=== PATIENT | female | born 1950 | race Caucasian/White ===

== ENCOUNTER 2017-12-22 01:18 | Inpatient (IN) | payer MEDICARE, BC ==
[~2017-12-22] VITALS: Ht 157.5 cm; Wt 91.6 kg
--- NOTE | 2017-12-22 01:45 | NUR ---
ADMISSION NOTES: ADMITTED A 67 YEARS OLD FEMALE PATIENT. PATIENT FROM [facility]. PATIENT IS ON 5150 HOLD FOR DTS, DTO. PER HOLD PT'S WAS UNABLE TO TRANSPORT HER TO [facility]. PT'S STATED HIS WAS MAKING ODD STATEMENTS AND ATTACKED HIM WHILE ENROUTE TO THE HOSPITAL. PT STATING SHE DOES NOT HAVE A BODY AND IS VERY AGITATED. UNABLE TO PROVIDE SELF CARE. UPON FACE TO FACE ASSESSMENT PATIENT ALERT ORIENTED X3, ANXIOUS, DISORGANIZED, DISORIENTED. ADMITTING DX OF SCHIZOPRENIA. V/S STABLE. NO SOB. RESPIRATION EVEN AND UNLABORED. NO COMPLAIN OF PAIN/DISCOMFORT AT THIS TIME. DENIES SI/HI. 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 SIGMOID DIVERTICULITIS, HYPERLIPIDEMIA, HYPOKALEMIA, BASAL CELL SKIN CANCER. DR. HAZEL (MEDICAL) AND DR. AMBROCIO (PSYCHIATRIST) MADE AWARE OF THE PATIENT ADMISSION WITH ORDERS. MRSA DONE. SKIN ASSESSMENT DONE. WOUND CONSULT TRIGERRED. CHECK FOR CONTRABAND ITEMS. PUT IT IN A SAFE/LOCKED CABINET. PATIENT WAS ORIENTED IN THE UNIT AND UNIT POLICIES. ALL NEEDS ATTENDED. WILL CONTINUE TO MONITOR FOR SAFETY.
[2017-12-22 03:09] VITALS: BP 145/98
[2017-12-22] MEDS ORDERED: MAGNESIUM HYDROXIDE 30 ML UDC PO PRN (04:00)
[2017-12-22] MEDS ORDERED: MAG HYDROX/AL HYDROX/SIMETH 30 ML UDC PO PRN (04:00)
[2017-12-22] MEDS ORDERED: ZIPR40CA2 PO (04:26)
[2017-12-22] MEDS ORDERED: VENL75CA56 PO (04:26)
[2017-12-22 08:08] VITALS: BP 155/78
[2017-12-22] MEDS ORDERED: QUETIAPINE FUMARATE 25 MG TABLET PO PRN (12:00)
[2017-12-22 16:22] VITALS: BP 145/91
[2017-12-22] MEDS: GABAPENTIN 100 MG CAPSULE PO SCH (16:52)
[2017-12-22 20:00] VITALS: BP 112/62
[2017-12-22] MEDS: TEMAZEPAM 7.5 MG CAPSULE PO PRN (21:55)
[2017-12-22] MEDS ORDERED: QUETIAPINE FUMARATE 25 MG TABLET PO SCH (22:00)
[2017-12-23] MEDS: GABAPENTIN 100 MG CAPSULE PO SCH ×3 (08:04→16:39)
--- NOTE | 2017-12-23 08:33 | NUR ---
GPS RN NOTE; PATIENT REFUSED AM LABS ,VSS , BREAKFAST, MEDICATIONS . PT IN THE ROOM RESTING IN BED AWAKE , ISOLATIVE, DEPRESSED, NON COMPLIANT,DISORGANIZED . WILL CONTINUE MONITORING FOR SAFETY AND BEHAVIOR Q 15 MIN.
[2017-12-23] MEDS: HYDROCORTISONE 1% CREAM 28.35 GM TUBE TP SCH ×2 (11:00→16:17)
[2017-12-23 16:34] VITALS: BP 134/93
[2017-12-23 20:04] VITALS: BP 133/74
[2017-12-23] MEDS ORDERED: QUETIAPINE FUMARATE 25 MG TABLET PO SCH (22:00)
--- NOTE | 2017-12-23 22:24 | NUR ---
RN GPS NOTES PT. REFUSED NIGHT MEDS SEROQUEL ,ENCOURAGED FOR MEDS , STILL REFUSED , PT. STATED I DON'T WANT MEDS , EXPLAINED RISKS AND BENEFITS ,STILL REFUSED
[2017-12-24] MEDS: GABAPENTIN 100 MG CAPSULE PO SCH ×3 (08:27→16:30)
[2017-12-24] MEDS: HYDROCORTISONE 1% CREAM 28.35 GM TUBE TP SCH ×2 (08:27→16:31)
--- NOTE | 2017-12-24 14:21 | NUR ---
WOUND CARE CONSULT: PT IS AMBULATORY AND CONTINENT. PT PRESENTS WITH RT ARM BRUISE AND RASH TO RT CHEEK ON FACE. DEFER TO MD FOR FACE RASH. WILL SEE PRN. MD IN AGREEMENT WITH PLAN OF CARE. CURRENT LAVINIA SCORE IS 21.
[2017-12-24 16:00] VITALS: BP 136/52
--- NOTE | 2017-12-24 16:11 | NUR ---
Initial Discharge Note: Pt will return home to [address] [facility] [address] . SHANI spoke with pts [employer] [phone] who stated pt can return home only if she is stable. Pts stated "Ill take her back if shes stable if not then I don't know what to do with her she's dangerous." SHANI will help form a safe and proper discharge in collaboration with .
[2017-12-24] MEDS: risperiDONE 1 MG TABLET PO SCH (19:06)
--- NOTE | 2017-12-24 19:20 | NUR ---
RN OPENING NOTE RECEIVED PATIENT IN BED RESTING COMFORTABLY, ASLEEP, IN NO APPARENT DISTRESS OR DISCOMFORT AT THIS TIME, RESPIRATIONS EVEN AND UNLABORED. WILL CONTINUE TO MONITOR.
[2017-12-24 19:42] VITALS: BP 141/71
[2017-12-25 08:00] VITALS: BP 139/76
[2017-12-25] MEDS: BENZTROPINE MESYLATE (1 MG) 1 MG TABLET PO SCH ×3 (09:23→17:06)
[2017-12-25] MEDS: risperiDONE 1 MG TABLET PO SCH ×3 (09:23→17:05)
[2017-12-25] MEDS: GABAPENTIN 100 MG CAPSULE PO SCH ×3 (09:23→17:05)
[2017-12-25] MEDS: HYDROCORTISONE 1% CREAM 28.35 GM TUBE TP SCH ×2 (09:24→17:06)
[2017-12-25] MEDS: ACETAMINOPHEN 325 MG TABLET PO PRN ×2 (10:56→17:05)
[2017-12-25] MEDS: LORAZEPAM 0.5 MG TABLET PO PRN (17:06)
[2017-12-25 20:13] VITALS: BP 126/74
[2017-12-25 20:18] VITALS: BP 126/74
[2017-12-26 08:00] VITALS: BP 122/84
[2017-12-26] MEDS: BENZTROPINE MESYLATE (1 MG) 1 MG TABLET PO SCH ×3 (08:08→16:19)
[2017-12-26] MEDS: GABAPENTIN 100 MG CAPSULE PO SCH (08:08)
[2017-12-26] MEDS: risperiDONE 1 MG TABLET PO SCH ×3 (08:08→16:19)
[2017-12-26] MEDS: HYDROCORTISONE 1% CREAM 28.35 GM TUBE TP SCH ×2 (08:09→16:35)
[2017-12-26] MEDS: GABAPENTIN 300 MG CAPSULE PO SCH ×2 (12:39→16:19)
[2017-12-26 16:00] VITALS: BP 134/83
[2017-12-26] MEDS: LORAZEPAM 0.5 MG TABLET PO PRN (18:39)
--- NOTE | 2017-12-26 18:42 | NUR ---
GPS/RN-NOTES PATIENT REQUESTING FOR ATIVAN,STATED" I NEED IT FOR MY ANXIETY". ATIVAN 0.5MG P.O GIVEN PRN ORDER. WILL CONT. MONITORING FOR SAFETY AND BEHAVIOR.
[2017-12-26 20:00] VITALS: BP 130/60
[2017-12-26 20:19] VITALS: BP 130/60
[2017-12-27 07:25] VITALS: BP 130/60
[2017-12-27 08:58] VITALS: BP 131/83
[2017-12-27] MEDS: risperiDONE 1 MG TABLET PO SCH ×3 (09:26→21:02)
[2017-12-27] MEDS: GABAPENTIN 300 MG CAPSULE PO SCH ×3 (09:26→16:21)
[2017-12-27] MEDS: BENZTROPINE MESYLATE (1 MG) 1 MG TABLET PO SCH ×3 (09:26→16:22)
[2017-12-27] MEDS: HYDROCORTISONE 1% CREAM 28.35 GM TUBE TP SCH ×2 (09:27→16:22)
[2017-12-27] MEDS ORDERED: risperiDONE 1 MG TABLET PO SCH (14:19)
[2017-12-27 16:00] VITALS: BP_SYST 122; BP_SYST 133; BP_DIAS 58; BP_DIAS 68
[2017-12-27] MEDS: TEMAZEPAM 7.5 MG CAPSULE PO PRN (22:11)
[2017-12-28 08:00] VITALS: BP 139/82
[2017-12-28] MEDS: GABAPENTIN 300 MG CAPSULE PO SCH ×3 (08:44→16:20)
[2017-12-28] MEDS: BENZTROPINE MESYLATE (1 MG) 1 MG TABLET PO SCH ×3 (08:44→16:20)
[2017-12-28] MEDS: risperiDONE 1 MG TABLET PO SCH ×3 (08:44→20:35)
[2017-12-28] MEDS: HYDROCORTISONE 1% CREAM 28.35 GM TUBE TP SCH ×2 (14:03→16:20)
[2017-12-28] MEDS: LORAZEPAM 0.5 MG TABLET PO PRN (15:45)
[2017-12-28 16:00] VITALS: BP 131/68
[2017-12-28 20:00] VITALS: BP 110/67
[2017-12-28] MEDS: TEMAZEPAM 7.5 MG CAPSULE PO PRN (21:30)
[2017-12-29] MEDS: risperiDONE 1 MG TABLET PO SCH ×3 (08:28→20:47)
[2017-12-29] MEDS: GABAPENTIN 300 MG CAPSULE PO SCH ×3 (08:28→16:26)
[2017-12-29] MEDS: BENZTROPINE MESYLATE (1 MG) 1 MG TABLET PO SCH ×3 (08:28→16:26)
[2017-12-29 08:33] VITALS: BP 128/65
[2017-12-29] MEDS: LORAZEPAM 0.5 MG TABLET PO PRN (08:33)
--- NOTE | 2017-12-29 08:33 | NUR ---
GPS/RN-NOTES PATIENT REQUESTING FOR ATIVAN,FEELING ANXIOUS ATIVAN 0.5MG P.O GIVEN PRN ORDER. WILL CONT. MONITORING FOR SAFETY AND BEHAVIOR.
[2017-12-29] MEDS: HYDROCORTISONE 1% CREAM 28.35 GM TUBE TP SCH ×2 (08:36→16:27)
[2017-12-29 11:30] LABS: ALBUMIN 3.1 g/dL (3.4-5.0); BILIRUBIN,TOTAL 0.4 mg/dL (0.2-1.0); CALCIUM, SERUM 9.1 mg/dL (8.5-10.1); CREATININE 0.8 mg/dL (0.6-1.3); MAGNESIUM 2.5 mg/dL (1.8-2.4); POTASSIUM 4.2 mmol/L (3.5-5.1); TOTAL PROTEIN, SERUM 6.9 g/dL (6.4-8.2)
[2017-12-29 16:37] VITALS: BP 117/64
[2017-12-29 20:00] VITALS: BP 110/68
--- NOTE | 2017-12-29 20:00 | NUR ---
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 BREATHING NON LABORED. AROUSABLE AND VERBALLY RESPONSIVE. BREATHING NON LABORED. BED ON LOWER POSITION AND LOCKED FOR SADETY. WILL CONTINUE TO MONITOR.
[2017-12-30 08:36] VITALS: BP 123/76
[2017-12-30] MEDS: risperiDONE 1 MG TABLET PO SCH (08:54)
[2017-12-30] MEDS: GABAPENTIN 300 MG CAPSULE PO SCH ×3 (08:54→16:15)
[2017-12-30] MEDS: BENZTROPINE MESYLATE (1 MG) 1 MG TABLET PO SCH ×3 (08:55→16:15)
[2017-12-30] MEDS: HYDROCORTISONE 1% CREAM 28.35 GM TUBE TP SCH ×2 (09:02→16:13)
[2017-12-30] MEDS ORDERED: INVEGA SUSTENNA 156 MG IM ONE (13:00)
[2017-12-30 14:16] LABS: BASOPHILS % (AUTO) 0.4 % (0.0-2.0); HEMATOCRIT 41 % (33-45); HEMOGLOBIN 13.7 g/dL (11.5-14.8); LYMPHOCYTES # (AUTO) 1.3 /CMM (0.8-4.8); LYMPHOCYTES % (AUTO) 15.3 % (20.0-44.0); MEAN CORPUSCULAR HGB CONC 33 g/dl (31.0-36.0); MEAN CORPUSCULAR VOLUME 87 fL (82-100); MONOCYTES # (AUTO) 0.6 /CMM (0.1-1.30); MONOCYTES % (AUTO) 7.6 % (2.0-12.0); NEUTROPHILS # (AUTO) 6.3 /CMM (1.8-8.9); NEUTROPHILS % (AUTO) 75.7 % (43.0-81.0); PLATELET COUNT (AUTO) 257 /CMM (150-450); RDW COEFFICIENT OF VARIATION 14.3 (11.5-15.0); RED BLOOD CELL COUNT(AUTO) 4.72 MIL/uL (4.0-5.2); WHITE BLOOD COUNT (AUTO) 8.4 K/uL (4.3-11.0)
--- NOTE | 2017-12-30 14:19 | NUR ---
ASSUMED CARE: RECEIVED PT. AWAKE IN HER ROOM, QUIET, WAS JUST VISITED BY HER . NO DISTRESS AND NO AGITATION NOTED AND WILL CONTINUE TO MONITOR FOR SAFETY.
[2017-12-30 14:36] LABS: CALCIUM, SERUM 9.3 mg/dL (8.5-10.1); POTASSIUM 4.2 mmol/L (3.5-5.1)
[2017-12-30 14:42] LABS: ALBUMIN 3.4 g/dL (3.4-5.0); BILIRUBIN,DIRECT 0.1 mg/dL (0.0-0.2); BILIRUBIN,TOTAL 0.4 mg/dL (0.2-1.0); MAGNESIUM 2.2 mg/dL (1.8-2.4); TOTAL PROTEIN, SERUM 7.7 g/dL (6.4-8.2)
[2017-12-30 14:49] LABS: THYROID STIMULATING HORMONE 3.477 uIU/mL (0.358-3.74)
--- NOTE | 2017-12-30 16:12 | NUR ---
PT. REUFSED FOR EKG, EXPLAINED ON THE IMPORTANCE AND PT. STILL REFUSING.
[2017-12-30 16:20] VITALS: BP 120/72
--- NOTE | 2017-12-30 16:48 | NUR ---
PT. AGREED FOR EKG AT THIS TIME AND RELAYED THE EKG AND THE LAB RESULTS TO DR. HERNANDEZ NO NEW ORDER.
[2017-12-30 20:00] VITALS: BP 123/72
[2017-12-30 20:31] VITALS: BP 123/72
--- NOTE | 2017-12-31 06:15 | NUR ---
RN NOTES PATIENT REFUSED TO HAVE PHOTO TAKEN OF RIGHT UPPER LEG. MADE PATIENT AWARE SHE HAD SCABS TO SITE AND IF I CAN ASSESS AND TAKE WEEKLY PHOTOS, PATIENT REFUSED STATED" I DONT HAVE ANYTHING THERE".
[2017-12-31] MEDS ORDERED: risperiDONE 1 MG TABLET PO SCH (08:00)
[2017-12-31] MEDS: GABAPENTIN 300 MG CAPSULE PO SCH ×3 (08:23→16:17)
[2017-12-31] MEDS: BENZTROPINE MESYLATE (1 MG) 1 MG TABLET PO SCH ×3 (08:24→16:17)
[2017-12-31] MEDS: LEVOTHYROXINE SODIUM 25 MCG TABLET PO SCH (08:24)
[2017-12-31] MEDS: risperiDONE 0.25 MG TABLET PO SCH ×2 (08:24→16:17)
[2017-12-31] MEDS: HYDROCORTISONE 1% CREAM 28.35 GM TUBE TP SCH ×2 (08:59→17:31)
[2017-12-31 09:44] VITALS: BP 125/80
--- NOTE | 2017-12-31 10:45 | NUR ---
SHANI scheduled follow up appointment with Paulina vallejo at Psychiatrist: Dr. Eric Pompa [id number] [facility] [id number] on Monday January 15, 2018 at 9:45am.
[2017-12-31 16:00] VITALS: BP 110/80
--- NOTE | 2017-12-31 19:35 | NUR ---
GPSRN REFUSED TO HAVE VITAL SIGNS TAKEN. WENT BACK TO SLEEP. CLOSELY WATCHED
--- NOTE | 2018-01-01 02:33 | NUR ---
GPSRN SLEEPING, AWAKENED WHEN CALLED, NO VERBAL RESPONSE OF THIS TIME. NO NEEDS FOR NOW. CLOSELY WATCHED
--- NOTE | 2018-01-01 02:34 | NUR ---
GPSRN NO DUE MEDS FOR TONIGHT.
--- NOTE | 2018-01-01 06:00 | NUR ---
GPSRN FULLY AWAKE, WALKED OUTSIDE ROOM. SLIGHTLY ANXIOUS, ALL NEED ATTENDED.
[2018-01-01] MEDS: risperiDONE 0.25 MG TABLET PO SCH ×2 (08:11→16:29)
[2018-01-01] MEDS: LEVOTHYROXINE SODIUM 25 MCG TABLET PO SCH (08:11)
[2018-01-01] MEDS: HYDROCORTISONE 1% CREAM 28.35 GM TUBE TP SCH ×2 (08:11→16:29)
[2018-01-01] MEDS: BENZTROPINE MESYLATE (1 MG) 1 MG TABLET PO SCH ×3 (08:11→16:29)
[2018-01-01] MEDS: LORAZEPAM 0.5 MG TABLET PO PRN (08:11)
[2018-01-01] MEDS: GABAPENTIN 300 MG CAPSULE PO SCH ×3 (08:11→16:28)
--- NOTE | 2018-01-01 08:11 | NUR ---
GPS/RN PATIENT REPORTS BEING ANXIOUS, ADMINISTERED ATIVAN 0.5 MG PER PATIENT REQUEST, WILL CONTINUE TO MONITOR.
[2018-01-01 08:51] VITALS: BP 111/75
--- NOTE | 2018-01-01 10:23 | NUR ---
DISCHARGE NOTE: Pt being discharged at 6:00pm [facility] [address] [facility] [address]. Pts [facility] [phone] will be picking up pt via private vehicle. Pts mood and affect was calm and cooperative and denied suicidal/homicidal ideations and denied visual/auditory hallucinations. Pts agreed to discharge plan and was notified of pts follow up psych appointment. Pt will follow up with [facility]: Dr. Ngoc Reyes [address] [facility] [address]. [phone] and scheduled follow up appointment with Psychiatrist: Dr. Eric Pompa [address] [facility] [address] on Monday January 15, 2018 at 9:45am. Pts continuing care packet was faxed to Dr. Eric Pompa fax: [phone]. The multidisciplinary exitcare form was done, printed, signed, and given to the patient.
--- NOTE | 2018-01-01 10:53 | NUR ---
SHANI faxed continuing care packet to Dr. Eric Pompa fax: [phone].
[2018-01-01 16:00] VITALS: BP 113/70
--- NOTE | 2018-01-01 18:59 | NUR ---
GPS/RN PATIENT CLEARED FOR DISCHARGE HOME BY DR THEODORE AND DR ROWE, MEDICATIONS RECONCILED AND PRESCRIPTIONS INCLUDED IN PACKET. PER PATIENT, NO MEDICAL PRESCRIPTIONS NEEDED. PSYCHIATRIC PRESCRIPTIONS FAXED TO [facility] IN [place]. EXIT CARE, MEDICATIONS AND AFTER CARE PLAN EXPLAINED TO PATIENT AND , VERBALIZED UNDERSTANDING. BELONGINGS AND HOME MEDICATIONS RETURNED TO PATIENT. PATIENT REFUSED D/C PHOTOS, STATED " I JUST HAD PICTURES TAKEN YESTERDAY" PATIENT DENIES SI/HI/AH UPON DISCHARGE, PSYCHIATRIC TREATMENT PLANS MET. LEFT UNIT CALM, COOPERATIVE, STABLE CONDITION,NO DISTRESS NOTED WITH APPRENTICE PAINTER HAND AND AT SIDE.
== END 2018-01-01 19:00 | disposition home or self-care (01) | DRG 885 ==
LOC: GPS 01:18
PROVIDERS: ADMIT Psychiatry & Neurology Psychosomatic Medicine; ATTEND Nurse Practitioner Acute Care
DX: F31.9 Bipolar disorder, unspecified (principal); E44.1 Mild protein-calorie malnutrition; E78.5 Hyperlipidemia, unspecified; F41.9 Anxiety disorder, unspecified; F20.9 Schizophrenia, unspecified; Z98.1 Arthrodesis status; Z73.6 Limitation of activities due to disability; G89.29 Other chronic pain; Z85.828 Personal history of other malignant neoplasm of skin; Z68.36 Body mass index [BMI] 36.0-36.9, adult; Z88.0 Allergy status to penicillin; Z88.2 Allergy status to sulfonamides; Z91.5 Personal history of self-harm
CPT/HCPCS: 36415; 80048-TC; 80053-TC; 80076-TC; 83540-TC; 83735-TC; 84100-TC; 84443-TC; 85025-TC; 87081-TC